=== PATIENT | female | born 1955 | race Two or more races ===

== ENCOUNTER 2020-12-07 10:12 | Emergency (ER) | payer OTHER ==
[~2020-12-07] VITALS: Ht 157.5 cm; Wt 63.5 kg
[2020-12-07] MEDS ORDERED: HORIZANT300 MG (10:47)
[2020-12-07] MEDS ORDERED: TOPROL XL50 M1 (10:48)
[2020-12-07] MEDS ORDERED: SYNTHROID75 MCG (10:48)
[2020-12-07] MEDS ORDERED: AVAPRO300 MG (10:48)
[2020-12-07] MEDS ORDERED: CALTRATE 600 +1 EACH (10:49)
[2020-12-07] MEDS ORDERED: FOSAMAX PLUS D1 EACH (10:49)
[2020-12-07] MEDS ORDERED: FORTAMET1000 MG (10:49)
[2020-12-07] MEDS ORDERED: TANDEM PLUS CA1 EACH (10:50)
[2020-12-07] MEDS ORDERED: AMLODIPINE-OLM1 EACH (10:50)
[2020-12-07] MEDS ORDERED: DIPROLENE 0.05%15 GM (10:50)
== END 2020-12-07 14:51 | disposition home or self-care (01) ==
LOC: ER 10:12
DX: M75.82 Other shoulder lesions, left shoulder (principal); I16.0 Hypertensive urgency; I10 Essential (primary) hypertension

== ENCOUNTER 2020-12-15 08:23 | Outpatient (CLI) | payer OTHER ==
[~2020-12-15 08:23] MED LIST: AMLODIPINE-OLM1 EACH; AVAPRO300 MG; CALTRATE 600 +1 EACH; DIPROLENE 0.05%15 GM; FORTAMET1000 MG; FOSAMAX PLUS D1 EACH; HORIZANT300 MG; SYNTHROID75 MCG; TANDEM PLUS CA1 EACH; TOPROL XL50 M1
== END 2020-12-15 08:29 | disposition home or self-care (01) ==
LOC: RX STUDY 08:23
PROVIDERS: ATTEND Otolaryngology Plastic Surgery within the Head & Neck
DX: R13.19 Other dysphagia (principal); K22.8 Other specified diseases of esophagus